=== PATIENT | male | born 1960 | race Caucasian/White ===

== ENCOUNTER → 2017-08-06 06:35 | Outpatient (CLI) | payer BC, SELFPAY ==
--- NOTE | 2017-08-06 | XR_ITS ---
XR knee RT 3V HISTORY: ITS.REASON: PAINFUL R KNEE ORDERING PHYSICIAN: Rm Livingston MD PATIENT AGE: 56 years FINDINGS: No fracture or dislocation. No lytic or blastic change. Normal mineralization. There are mild osteoarthritic changes of the medial compartment and patellofemoral joint. IMPRESSION: Mild osteoarthritis of the right knee
== END ==
PROVIDERS: PCP Family Medicine; Visit Provider Family Medicine
DX: M25.561 Pain in right knee (principal)
CPT/HCPCS: 73562

== ENCOUNTER → 2017-09-29 07:56 | Outpatient (CLI) | payer BC, SELFPAY ==
[2017-09-29 10:58] LABS: Chol/HDL Ratio 3.5 (1-3.5); Cholesterol 170 mg/dL (140-200); HDL Cholesterol 48 mg/dL (27-67); LDL Cholesterol 103 mg/dL (0-130); Triglycerides 93 mg/dL (30-200); VLDL Cholesterol 19 mg/dL (0-40)
== END ==
PROVIDERS: Visit Provider Internal Medicine Cardiovascular Disease
DX: E78.5 Hyperlipidemia, unspecified (principal)
CPT/HCPCS: 36415; 80061

== ENCOUNTER 2017-10-18 08:00 | Outpatient (RCR) | payer BC, SELFPAY | END 2017-10-18 08:01 | disposition home or self-care (01) | LOC: PT 08:00 | PROVIDERS: Family Provider Family Medicine; PCP Family Medicine; Visit Provider Physician Assistant | DX: M25.561 Pain in right knee (principal) | CPT/HCPCS: 97033; 97035; 97110; 97140; 97163 ==

== ENCOUNTER → 2018-03-25 15:25 | Outpatient (CLI) | payer BC, SELFPAY ==
--- NOTE | 2018-03-25 15:30 | MR_ITS ---
MR knee RT wo con HISTORY: Knee pain and swelling with instability ITS.REASON: PAIN IN RT KNEE ORDERING PHYSICIAN: Joon Loera MD PATIENT AGE: 57 years Comparison: 08/06/2017 TECHNIQUE: Standard multiplanar multiecho sequences are performed without contrast. FINDINGS: The cruciate ligaments, collateral ligaments, patellar tendon, and quadriceps tendon are intact. There are tricompartmental osteoarthritic changes with a knee joint effusion. The lateral meniscus has an unremarkable appearance. There is increased T2 signal of the posterior horn of the medial meniscus. This however does not communicate with the articular surface and does not meet the strict MRI criteria for meniscal tear. There is some increased T2 signal involving the medial femoral condyle as well as the medial tibial plateau. Osteochondritis decicans involves the medial femoral condyle and medial tibial plateau. There is a 7 mm area of decreased T1 signal involving the subchondral portion of the medial femoral condyle and a 4 mm area of similar signal characteristics of the medial tibial plateau. Tricompartmental osteoarthritis noted somewhat worse at the patellofemoral joint. Subarticular cystic changes are present involving the proximal tibia centrally just lateral to the tibial spine region. There is mild thinning of the patellar cartilage with some increased T2 signal involving the subchondral portion of the patella. IMPRESSION: 1. No evidence of meniscal tear or cruciate ligament tear. 2. Tricompartmental osteoarthritis with knee joint effusion. 3. Osteochondritis desiccation is of the medial femoral condyle and medial tibial plateau
== END ==
PROVIDERS: PCP Family Medicine; Visit Provider Family Medicine
DX: M25.561 Pain in right knee (principal)
CPT/HCPCS: 73721

== ENCOUNTER → 2018-04-22 10:18 | Outpatient (CLI) | payer BC, SELFPAY ==
--- NOTE | 2018-04-22 10:22 | XR_ITS ---
XR knee RT 4V Ordering Physician: Bibiana Palomo MD Patient Age: 57 years: Male HISTORY: ITS.REASON: Rt knee pain pain at medial aspect of knee. Some swelling TECHNIQUE:.: Weightbearing AP, lateral and Hirsch views were performed as well as oblique. COMPARISON :418 right knee radiograph & MRI of right knee March 2018 FINDINGS Mild Narrowing of the medial compartment reflecting developing degenerative changes here. These were seen previously . Minor sclerosis at, about medial compartment. Mild sharpening the joint margins. As well as early hypertrophy about the notch. No significant joint effusion. Bones well mineralized. Patella normal position and relationships on sunrise view. IMPRESSION: . Developing degenerative changes right knee- most evident at medial compartment .
== END ==
PROVIDERS: PCP Family Medicine; Visit Provider Orthopaedic Surgery
DX: M25.561 Pain in right knee (principal)
CPT/HCPCS: 73564

== ENCOUNTER → 2018-09-03 07:14 | Outpatient (CLI) | payer BC, SELFPAY ==
[2018-09-03 08:46] LABS: Alanine Aminotransferase 47 U/L (12-78); Albumin/Globulin Ratio 1.4 (1.1-1.8); Alkaline Phosphatase 110 U/L (46-116); Aspartate Amino Transferase 32 U/L (15-37); Bilirubin,Total 0.6 mg/dL (0.2-1.0); Blood Urea Nitrogen 14 mg/dL (7-18); Calcium 9.4 mg/dL (8.5-10.1); Carbon Dioxide 28 mmol/L (21.0-32.0); Chloride 104 mmol/L (98-107); Creatinine,Serum 1.01 mg/dL (0.70-1.30); Estimated Glomerular Filt Rate 76 ml/min (>60); GFR (African American) 92 ML/MIN (>60); Globulin 2.9 gm/dl (1.3-3.2); Glucose 113 mg/dL (74-106); Sodium 140 mmol/L (136-145); Total Protein,Serum 6.9 gm/dL (6.4-8.2)
== END ==
PROVIDERS: Visit Provider Psychiatry & Neurology Neurology
DX: G25.0 Essential tremor (principal)
CPT/HCPCS: 36415; 80053

== ENCOUNTER → 2019-03-28 08:39 | Outpatient (CLI) | payer BC, SELFPAY ==
[2019-03-28 11:21] LABS: Prostate Specific Ag Screen 1.6 ng/mL (0.0-4.0)
[2019-03-28 11:44] LABS: Alanine Aminotransferase 37 U/L (12-78); Albumin Level 3.8 gm/dL (3.4-5.0); Albumin/Globulin Ratio 1.2 (1.1-1.8); Alkaline Phosphatase 131 U/L (46-116); Anion Gap 15.7 mEq/L (5-15); Aspartate Amino Transferase 21 U/L (15-37); Bilirubin,Total 0.4 mg/dL (0.2-1.0); Blood Urea Nitrogen 13 mg/dL (7-18); Calcium 8.8 mg/dL (8.5-10.1); Carbon Dioxide 26 mmol/L (21.0-32.0); Chloride 104 mmol/L (98-107); Chol/HDL Ratio 3.3 (1-3.5); Cholesterol 142 mg/dL (140-200); Creatinine,Serum 0.94 mg/dL (0.70-1.30); Estimated Glomerular Filt Rate 82 ml/min (>60); GFR (African American) 100 ML/MIN (>60); Globulin 3.2 gm/dl (1.3-3.2); Glucose 110 mg/dL (74-106); HDL Cholesterol 43 mg/dL (27-67); LDL Cholesterol 80 mg/dL (0-130); Potassium 4.7 mmoL/L (3.5-5.1); Sodium 141 mmol/L (136-145); Triglycerides 94 mg/dL (30-200); VLDL Cholesterol 19 mg/dL (0-40)
== END ==
PROVIDERS: Urology; Visit Provider Internal Medicine Cardiovascular Disease
DX: G47.33 Obstructive sleep apnea (adult) (pediatric) (principal); R97.20 Elevated prostate specific antigen [PSA]
CPT/HCPCS: 36415; 80053; 80061; G0103

== ENCOUNTER → 2020-06-11 09:53 | Outpatient (CLI) | payer BC, SELFPAY ==
[2020-06-11 10:42] LABS: Basophils # 0.1 K/mm3 (0-0.2); Basophils % 0.8 % (0.1-2.0); Eosinophils # 0.1 K/mm3 (0.0-0.4); Eosinophils % 1.6 % (0.1-12.0); Hemoglobin 14.7 g/dL (14.1-18.0); Lymphocytes # 2.7 K/mm3 (0.7-4.5); Mean Corpuscular HGB Conc 33.4 g/dL (31.8-35.4); Mean Corpuscular Hemoglobin 28.3 pg (27.0-31.2); Mean Corpuscular Volume 84.8 fl (80-94); Mean Platelet Volume 8.2 fl (7.4-10.4); Monocytes # 0.3 K/mm3 (0.1-1.0); Neutrophils # 4.5 K/mm3 (1.8-7.8); Neutrophils % 58.5 % (37.0-80.0); Platelet Count 198 K/mm3 (142-424); Red Blood Count 5.19 M/mm3 (4.60-6.20); Red Cell Distribution Width 14.7 % (11.5-17.5); White Blood Count 7.8 K/mm3 (4.8-10.8)
[2020-06-11 10:56] LABS: Alanine Aminotransferase 38 U/L (12-78); Albumin Level 4.7 g/dl (3.5-5.0); Albumin/Globulin Ratio 1.7 (1.1-1.8); Alkaline Phosphatase 95 U/L (38-126); Anion Gap 13.6 mEq/L (5-15); Aspartate Amino Transferase 48 U/L (17-59); Bilirubin,Total 0.7 mg/dl (0.2-1.3); Blood Urea Nitrogen 15 mg/dl (9-20); Calcium 10.1 mg/dl (8.4-10.2); Carbon Dioxide 28 mmol/L (22.0-30.0); Chloride 104 mmol/L (98-107); Chol/HDL Ratio 3.4 (1-3.5); Cholesterol 178 mg/dl (140-200); Estimated Glomerular Filt Rate 99 ml/min (>60); GFR (African American) 120 ML/MIN (>60); Globulin 2.8 g/dL (1.3-3.2); Glucose 107 mg/dl (74-100); HDL Cholesterol 52 mg/dl (40-60); Potassium 4.6 mmoL/L (3.5-5.1); Sodium 141 mmol/L (136-145); Total Protein,Serum 7.5 g/dl (6.3-8.2); Triglycerides 146 mg/dl (30-150); VLDL Cholesterol 29 mg/dL (0-40)
[2020-06-11 11:07] LABS: Direct LDL Cholesterol 89.69 mg/dL (100-129)
[2020-06-11 11:26] LABS: Prostate Specific Ag, Diagnost 1.88 ng/ml (0.0-4.0)
== END ==
PROVIDERS: Visit Provider Internal Medicine Cardiovascular Disease
DX: Z00.00 Encounter for general adult medical examination without abnormal findings (principal); E78.5 Hyperlipidemia, unspecified; M17.0 Bilateral primary osteoarthritis of knee; G25.0 Essential tremor
CPT/HCPCS: 36415; 80053; 80061; 84153; 85025

== ENCOUNTER → 2021-03-03 07:45 | Outpatient (CLI) | payer BC, SELFPAY ==
[2021-03-03 08:07] LABS: Hematocrit 41.2 % (42.0-52.0); Hemoglobin 14.2 g/dL (14.1-18.0); Mean Corpuscular HGB Conc 34.4 g/dL (31.8-35.4); Mean Corpuscular Hemoglobin 29.5 pg (27.0-31.2); Mean Corpuscular Volume 85.9 fl (80-94); Platelet Count 209 K/mm3 (142-424); Red Cell Distribution Width 14.5 % (11.5-17.5); White Blood Count 8.5 K/mm3 (4.8-10.8)
[2021-03-03 09:11] LABS: Alanine Aminotransferase 44 U/L (12-78); Albumin Level 4.3 g/dl (3.5-5.0); Albumin/Globulin Ratio 1.7 (1.1-1.8); Alkaline Phosphatase 101 U/L (38-126); Anion Gap 9.7 mEq/L (5-15); Aspartate Amino Transferase 44 U/L (17-59); Bilirubin,Total 0.6 mg/dl (0.2-1.3); Blood Urea Nitrogen 13 mg/dl (9-20); Calcium 9.3 mg/dl (8.4-10.2); Carbon Dioxide 30 mmol/L (22.0-30.0); Chloride 104 mmol/L (98-107); Chol/HDL Ratio 3.5 (1-3.5); Cholesterol 161 mg/dl (140-200); Estimated Glomerular Filt Rate 86 ml/min (>60); GFR (African American) 104 ML/MIN (>60); Globulin 2.5 g/dL (1.3-3.2); Glucose 118 mg/dl (74-100); HDL Cholesterol 46 mg/dl (40-60); Potassium 4.7 mmoL/L (3.5-5.1); Sodium 139 mmol/L (136-145); Total Protein,Serum 6.8 g/dl (6.3-8.2); Triglycerides 179 mg/dl (30-150); VLDL Cholesterol 36 mg/dL (0-40)
[2021-03-03 09:22] LABS: Direct LDL Cholesterol 90.99 mg/dL (100-129)
== END ==
PROVIDERS: Visit Provider Internal Medicine Cardiovascular Disease
DX: I34.1 Nonrheumatic mitral (valve) prolapse (principal); E78.5 Hyperlipidemia, unspecified
CPT/HCPCS: 36415; 80053; 80061; 85014; 85018; 85048; 85049

== ENCOUNTER 2021-09-20 15:29 | Emergency (ER) | payer BC, SELFPAY ==
[2021-09-20 15:54] VITALS: BP 131/66; PULSE 87; RESP 17; TEMP 36.7; O2SAT 98; BMI 22.5
[2021-09-20 16:04] VITALS: BP 107/70; PULSE 111; RESP 18; TEMP 36.9; O2SAT 96; BMI 28.5
--- NOTE | 2021-09-20 17:28 | HMH.EDUTC ---
[facility] [place] Clinical Impression: Laceration of right forearm Qualifiers: Encounter type: initial encounter Qualified Code(s): S51.811A - Laceration without foreign body of right forearm, initial encounter Disposition: Home, Self-Care Condition on Discharge: Good Instructions: How to Care for a Laceration After Repair, DI for Laceration Repair -- Simple Additional Instructions: Keep the wound clean and dry. Keep a dressing on it if you are going to be getting it dirty. Watch the for signs of infection, such as redness, swelling, drainage, fever. etc. Take tylenol or ibuprofen for pain. Follow up with your regular doctor. Return in 10 days to have the sutures removed. GO TO THE ER FOR ANY WORSENING SYMPTOMS OR CONCERNS. Prescriptions: cephALEXin [cephALEXin 500mg capsule] 500 mg PO Q6H 10 Days #40 cap Transmission Status: Received by [id number] Referrals: Joon Loera MD [Primary Care Provider] - Time of Disposition: 17:31 Medical Decision Making - Medical Records Medical records reviewed: No: I reviewed the patient's medical records. - Geoffrey Inquiry Pt receiving controlled substance: No Vital Signs: 09/20/21 15:54 09/20/21 16:04 09/20/21 17:32 Temperature 98.1 F 98.5 F 98.5 F Temperature Source Oral Oral Pulse Rate 111 H Pulse Rate [Left Radial] 87 111 H Respiratory Rate 17 18 18 Blood Pressure 107/70 L Blood Pressure [Right Arm] 131/66 107/70 L Blood Pressure Mean [Right Arm] 87 82 02 Sat by Pulse Oximetry 98 96 [facility] [place] - General Stated complaint: AO 09/20@1445Lac to R Arm Time Seen by Provider: 09/20/21 16:00 Description of Symptoms (Recalled from Triage Doc. by RN): patient comes in for laceration on right wrist. happened today HEENT Symptoms (Recalled from RN notes): No Resp Symptoms (Recalled from RN notes): No Skin Symptoms (Recalled from RN notes): Yes MS Symptoms (Recalled from RN notes): No Functional Status (Recalled from RN notes): wnl - History of Present Illness Provider Complaint: He states that he has 2 lacerations on his right wrist. He was using a chain saw to cut a tree up that had fallen in his yard. As he was cutting the chain saw off he accidentily touch his arm to the still moving chain. He denies any difficulty moving his fingers, hand or wrist. His tetanus immunization is up to date. - Related Data Home Medications Medication Instructions Recorded Confirmed Atorvastatin Calcium [Atorvastatin 40 mg PO DAILY 07/21/17 12/11/20 40mg Tab] Metoclopramide HCl [Metoclopramide 10 mg PO DAILY 07/21/17 12/11/20 10mg Tablet] meloxicam 15 mg tablet 15 mg PO PRN #30 tab 11/17/18 12/11/20 kyqnlvmrscrs-qtgtphru-umdrli tablet 1 tab PO DAILY 03/14/19 12/11/20 propranolol 10 mg tablet 10 mg PO BID 03/14/19 12/11/20 zinc 50 mg tablet 50 mg PO DAILY 11/13/19 12/11/20 lansoprazole 30 mg capsule,delayed 30 mg PO DAILY 90 Days #90 cap 12/11/20 12/11/20 release primidone 50 mg tablet 50 mg PO ONCE 30 Days #30 tab 12/11/20 12/11/20 prucalopride 2 mg tablet 2 mg PO DAILY tab 12/11/20 12/11/20 Previous Rx's Medication Instructions Recorded cetirizine 10 mg tablet 10 mg PO DAILY #30 tab 07/09/18 cephALEXin [cephALEXin 500mg 500 mg PO Q6H 10 Days #40 cap 09/20/21 capsule] Allergies Allergy/AdvReac Type Severity Reaction Status Date / Time No Known Allergies Allergy Verified 09/20/21 16:09 - Worker's Comp Is this a Worker's Comp case?: No [facility] History - Hepatitis A Screen Attestation statement:: This patient has been screened for Hepatitis A risk factors. I have reviewed the patient's past medical history: Yes Medical History: Reports:: Gastroesophageal Reflux Disease(GERD), Hyperlipidemia, Lung Disease, Valvular Heart Disease Denies:: Diabetes Mellitus Type 1, Diabetes Mellitus Type 2, Internal Pacemaker, Seizures Other Medical History: Reports: Arthritis, Sinus Problems, Other Comment: DEE, collapse lung
[2021-09-20 17:32] VITALS: BP 107/70; PULSE 111; RESP 18; TEMP 36.9
== END 2021-09-20 17:44 | disposition home or self-care (01) ==
PROVIDERS: Emergency Provider Nurse Practitioner Family; PCP Family Medicine
DX: S51.811A Laceration without foreign body of right forearm, initial encounter (principal); R25.1 Tremor, unspecified; I25.10 Atherosclerotic heart disease of native coronary artery without angina pectoris; K21.9 Gastro-esophageal reflux disease without esophagitis; E78.5 Hyperlipidemia, unspecified; J98.4 Other disorders of lung; G47.33 Obstructive sleep apnea (adult) (pediatric); Z98.1 Arthrodesis status; Z83.438 Family history of other disorder of lipoprotein metabolism and other lipidemia; Z82.49 Family history of ischemic heart disease and other diseases of the circulatory system; W29.3XXA Contact with powered garden and outdoor hand tools and machinery, initial encounter
CPT/HCPCS: 12002; 99213; G0463

== ENCOUNTER 2021-12-07 15:40 | Observation (INO) | payer BC, SELFPAY ==
[2021-12-07] VITALS (11 sets, daily range): BP systolic 113–129; BP diastolic 76–96; PULSE 72–95; RESP 16–21; TEMP 36.6–36.9; O2SAT 96–99; BMI 28.1; BMI 28.0
--- NOTE | 2021-12-07 15:40 | ECG_ITS ---
APPROVED REPORT Exam: Resting ECG HR:88 bpm ECG Measurements Heart Rate 88 AXES UT 155 P 65 QRSd 90 QRS 11 QT 340 T 47 QTc 386 Conclusion SINUS RHYTHM NORMAL ECG UNCONFIRMED REPORT Electronically signed by : Louie Monson MD 12/08/2021 17:18:24
--- NOTE | 2021-12-07 15:59 | XR_ITS ---
PROCEDURE INFORMATION: Exam: XR Chest Exam date and time: 12/07/2021 4:05 PM Age: 61 years old Clinical indication: Other: Chest pain, palpitations TECHNIQUE: Imaging protocol: Radiologic exam of the chest. Views: 2 views. COMPARISON: FERRULER/O MRI-C-SPINE W/O 11/05/2016 8:08 AM FINDINGS: Lungs: Unremarkable. No consolidation. Pleural spaces: Unremarkable. No pleural effusion. No pneumothorax. Heart/Mediastinum: Unremarkable. No cardiomegaly. Bones/joints: Unremarkable. IMPRESSION: No acute findings.
--- NOTE | 2021-12-07 16:01 | PC.NURSE ---
Roxana rounded on patient and family member
[2021-12-07 16:11] LABS: Basophils # 0.1 K/mm3 (0-0.2); Basophils % 0.7 % (0.1-2.0); Eosinophils # 0.1 K/mm3 (0.0-0.4); Eosinophils % 1.4 % (0.1-12.0); Hematocrit 46.8 % (42.0-52.0); Hemoglobin 14.6 g/dL (14.1-18.0); Lymphocytes # 2.9 K/mm3 (0.7-4.5); Lymphocytes % 33.8 % (10-50); Mean Corpuscular HGB Conc 31.3 g/dL (31.8-35.4); Mean Corpuscular Hemoglobin 27.8 pg (27.0-31.2); Mean Corpuscular Volume 88.9 fl (80-94); Mean Platelet Volume 9.5 fl (7.4-10.4); Monocytes # 0.5 K/mm3 (0.1-1.0); Monocytes % 5.4 % (1.7-9.3); Neutrophils % 58.6 % (37.0-80.0); Platelet Count 191 K/mm3 (142-424); Red Blood Count 5.27 M/mm3 (4.60-6.20); Red Cell Distribution Width 14.4 % (11.5-17.5); White Blood Count 8.5 K/mm3 (4.8-10.8)
--- NOTE | 2021-12-07 16:14 | PC.NURSE ---
PT TO XR
[2021-12-07 16:16] LABS: Blood Urea Nitrogen 16 mg/dl (9-20); Calcium 9.5 mg/dl (8.4-10.2); Carbon Dioxide 26 mmol/L (22.0-30.0); Chloride 105 mmol/L (98-107); Creatinine Clearance Estimated 92 mL/min (50-200); Estimated Glomerular Filt Rate 86 ml/min (>60); GFR (African American) 104 ML/MIN (>60); Glucose 96 mg/dl (74-100); Sodium 139 mmol/L (136-145)
--- NOTE | 2021-12-07 16:16 | PC.NURSE ---
PT RETURNED FROM XR
[2021-12-07 16:28] LABS: Troponin I < 0.01 ng/ml (0.00-0.034)
--- NOTE | 2021-12-07 16:45 | PC.NURSE ---
PT ASSISTED TO BR, NO FURTHER NEEDS AT THIS TIME
--- NOTE | 2021-12-07 17:57 | HMH.EDGENADL ---
Discharge Plan Disposition Patient Disposition: Admitted as Observation Condition: Good Clinical Impressions Clinical Impression: Tachycardia, Chest pain, Elevated troponin Discharge ED Provider: Riki Blas General Adult HPI General Chief complaint: Arrhythmia/Palpitations Stated complaint: palpitations Time Seen by Provider: 12/07/21 18:10 Mode of Arrival: Wheelchair Source of Information: Patient and Spouse Limitations: No Limitations Description of Symptoms (Recalled from ER Triage Doc. by RN): PT REPORTS COVID + ON WEDNESDAY, ABOUT 1510 TODAY NOTICED LEFT UPPER CHEST DISCOMFORT, HEART RACING AND DIZZINESS. RESOLVED AT THIS TIME AFTER MULTIPLE VAGAL MANEUVERS PER WHO IS A NURSE. REPORTS EVELVATED HR OVER 200/BPM. REPORTS INCREASED SHORTNESS OF BREATH History of Present Illness HPI narrative: History obtained from patient and . Patient states that he was in the basement today and noticed that he was short of breath and had some discomfort in his chest. He felt his heart and felt that it was racing. His , who is a nurse, put him on a pulse oximeter and his heart rate was up to 240. His pulse ox was good until his heart rate suddenly dropped to the 60s and his pulse ox DROPPED into the 70s briefly and then came back up. Symptoms lasted for about 20 minutes. Since then he has had a couple of momentary twinges of discomfort in the left lateral chest. He has no previous known heart conditions except for mitral valve prolapse. He was diagnosed with COVID on . This is the second time he has had COVID. He has had some nasal congestion, slight headache, mild cough. No fevers. He is a non-smoker. He has hyperlipidemia, diet-controlled diabetes. He does not have hypertension. Patient diagnosed with COVID on Related Data Home Medications Medication Instructions Recorded Confirmed atorvastatin 40 mg tablet 40 mg PO DAILY Cholesterol 07/21/17 12/07/21 zinc 50 mg tablet 50 mg PO DAILY Supplement 11/13/19 12/07/21 primidone 50 mg tablet 50 mg PO ONCE . 30 days #30 tabs 12/11/20 12/07/21 cetirizine 10 mg tablet (Zyrtec) 10 mg PO DAILY Allergy symptoms 12/07/21 12/07/21 tamsulosin 0.4 mg capsule 0.4 mg PO DAILY prostate 12/07/21 12/07/21 Allergies Allergy/AdvReac Type Severity Reaction Status Date / Time No Known Allergies Allergy Verified 09/20/21 16:09 [facility] Social History Smoking Status: Smoker, status unknown alcohol intake: never counseling provided: none substance use type: denies use current occupational status: employed and retired Travel in the last 8 weeks: None household members: spouse housing: house caffeine: Yes ROS Obtained: Yes Systems reviewed as appropriate & no additional complaints except as documented Constitutional Constitutional: Denies fever(s) ENT Ears, Nose, Mouth, and Throat: Reports nasal congestion Cardiovascular Cardiovascular: Reports chest pain, Denies leg edema and Reports rapid heart rate Respiratory Respiratory: Reports shortness of breath and Reports cough Gastrointestinal Gastrointestingal: Denies abdominal pain, diarrhea or vomiting Physical Exam General General appearance: alert and in no apparent distress Head Head exam: atraumatic and normocephalic Eye Eye exam: Present normal appearance and EOMI ENT ENT exam: Present normal exam and mucous membranes moist Neck Neck exam: Present normal inspection and trachea midline Chest Chest inspection: Present normal inspection and symmetric chest wall rise Respiratory Respiratory exam: Present normal lung sounds bilaterally; Absent respiratory distress Cardiovascular Cardiovascular exam: Present regular rate, normal rhythm and normal heart sounds Abdominal Exam Abdominal exam: Present soft; Absent distention or tenderness Extremities Exam Extremities exam: Present normal inspection; Absent edema or calf tenderness Neurological Exam Neurological exam: Present alert an
--- NOTE | 2021-12-07 18:14 | PC.NURSE ---
ED MD AT BEDSIDE FOR EVALUATION
--- NOTE | 2021-12-07 18:14 | PC.NURSE ---
dr guerrero at bedside
[2021-12-07 19:02] LABS: Free Thyroxine Index 2.3 ug/dL (5.93-13.13); T4 (Thyroxine) 8.3 ug/dl (5.53-11.0); Triiodothryronine (T3) Uptake 28 % (23.5-40.5)
--- NOTE | 2021-12-07 19:04 | CT_ITS ---
PROCEDURE INFORMATION: Exam: CTA Chest With Contrast Exam date and time: 12/07/2021 7:21 PM Age: 61 years old Clinical indication: Pain; Chest pressure; Additional info: Covid +, chest pain, episode of tachycardia TECHNIQUE: Imaging protocol: Computed tomographic angiography of the chest with contrast. 3D rendering (Not supervised by radiologist): MIP and/or 3D reconstructed images were created by the technologist. Radiation optimization: All CT scans at this facility use at least one of these dose optimization techniques: automated exposure control; mA and/or kV adjustment per patient size (includes targeted exams where dose is matched to clinical indication); or iterative reconstruction. Contrast material: ISOVUE 370; Contrast volume: 70 ml; Contrast route: INTRAVENOUS (IV); COMPARISON: CR Chest 12/07/2021 4:05 PM FINDINGS: Pulmonary arteries: Normal. No pulmonary emboli. Aorta: Unremarkable. No aortic aneurysm. No aortic dissection. Lungs: Minor bibasilar dependent atelectasis. No acute airspace consolidation or pulmonary nodules. Pleural spaces: Unremarkable. No pneumothorax. No pleural effusion. Heart: Unremarkable. No cardiomegaly. No pericardial effusion. Mediastinal space: Circumferential thickening of the lower esophagus. Lymph nodes: Unremarkable. No enlarged lymph nodes. Bones/joints: Unremarkable. No acute fracture. Soft tissues: Unremarkable. IMPRESSION: 1. Minor bibasilar dependent atelectasis. 2. Nonspecific circumferential thickening of the lower esophagus. Cannot exclude esophagitis or possibly esophageal neoplasm. Consider GI consultation.
[2021-12-07 19:15] LABS: Thyroid Stimulating Hormone 3.87 uIU/mL (0.465-4.68)
[2021-12-07 19:54] LABS: Troponin I 0.06 ng/ml (0.00-0.034)
--- NOTE | 2021-12-07 19:59 | PC.NURSE ---
24 hr. monitor requested none available at this time, face sheet faxed to respiratory, for patient to receive call when one is available
--- NOTE | 2021-12-07 20:13 | PC.NURSE ---
Abbey Loera MD at this time
--- NOTE | 2021-12-07 21:14 | PC.NURSE ---
Report given to JOSE Palafox at this time.
--- NOTE | 2021-12-07 21:45 | PC.NURSE ---
Pt heading to med/surg at this time
--- NOTE | 2021-12-07 21:56 | PC.NURSE ---
PT ARRIVED TO FLOOR VIA W/C @ 0740
[2021-12-07 23:29] LABS: Influenza A, PCR Not Detected (NotDetected); Influenza B, PCR Not Detected (NotDetected)
[2021-12-07 23:50] LABS: Coronavirus 19, PCR Detected (NotDetected)
[2021-12-08] VITALS: BP 112/58; PULSE 67; PULSE 80; RESP 20; TEMP 37; O2SAT 97
[2021-12-08 04:00] VITALS: BP 105/60; PULSE 47; PULSE 60; RESP 20; TEMP 37; O2SAT 97
--- NOTE | 2021-12-08 04:03 | PC.NURSE ---
Pt is alert and oriented x 4. Pt denies chest pain, palpitations, and/or SOA. Pt is NSR on telemetry. Maintaining airborne/contact precautions for covid. Lungs CTA. Pt ambulates in room independently. No needs or complaints voiced to staff. Call light in reach.
[2021-12-08 04:42] VITALS: BMI 28.0
[2021-12-08 08:00] VITALS: BP 114/65; PULSE 76; PULSE 83; RESP 16; TEMP 36.4; O2SAT 98
--- NOTE | 2021-12-08 09:12 | P.CONPHA_ITS ---
[facility] Pharmacy VTE Monitoring Patient Demographics Admission date: 12/07/21 Report Date: 12/08/21 Time: 09:12 Patient Allergies No Known Allergies Allergy (Verified 09/20/21 16:09) Height: 1.73 m Weight: 83.928 kg Current Active Problems (Updated 12/07/21 @ 23:00 by Vivienne Molina RN) Tachycardia (Acute) Chest pain (Acute) Elevated troponin (Acute) VTE Risk Labs: VTE Related Lab Results Hgb 14.6 g/dL (14.1-18.0) 12/07/21 15:45 Hct 46.8 % (42.0-52.0) 12/07/21 15:45 Plt Count 191 K/mm3 (142-424) 12/07/21 15:45 BUN 16 mg/dl (9-20) 12/07/21 15:45 Creatinine 0.90 mg/dl (0.66-1.25) 12/07/21 15:45 Estimated Creat Clear 92 mL/min (50-200) 12/07/21 15:45 Was VTE Risk Assessment Performed: Yes VTE Score: 5 VTE Risk Level: Low Risk Clinical Trial Participant: No Prophylaxis VTE Prophylaxis Ordered?: Yes Types of VTE Prophylaxis: TEDS Knee High Location of Applied Device: Refused
--- NOTE | 2021-12-08 10:03 | EXP.HPDC ---
General Admission date:: 12/07/21 Discharge date: 12/08/21 *Admission Date: 12/07/21 *Chief complaint: Palpitations *History of present illness: Mr. Head is a 61 year old male with a long standing history of mitral valve prolapse, followed by Dr. Draper at [facility], who presented to [facility] ER yesterday afternoon complaining of palpitations associated with shortness of breath and some chest pressure. He states he had several of these episodes yesterday, most were fairly brief but he did measure his heart rate at 240 beats per minute during one of the episodes. He did have some chest pressure with these episodes. He has never had any similar episodes in the past. He was incidentally diagnosed with Covid-19 4 days ago. He states his only symptom has been nasal congestion. [facility] Medical History Allergic rhinitis Cervical vertebral fusion Essential tremor Hyperlipidemia MVP (mitral valve prolapse) Surgical History H/O repair of rotator cuff H/O vasectomy History of testicular surgery Hx of cholecystectomy Hx of hernia repair Family History Family history of diabetes mellitus type II Family history of myocardial infarction Social History Smoking Status: Never smoker alcohol intake: never counseling provided: none substance use type: denies use current occupational status: employed Travel in the last 8 weeks: None household members: spouse housing: house marital status: caffeine: Yes Review of Systems Constitutional Constitutional: Denies chills and Denies fever(s) Eyes Eyes: Denies blurry vision ENT Ears, Nose, Mouth, and Throat: Denies abnormal hearing and Denies dizziness *Cardiovascular Cardiovascular: Reports as per HPI *Respiratory Respiratory: Denies cough *Gastrointestinal Gastrointestinal: Denies abdominal pain *Genitourinary Genitourinary: Denies hematuria *Musculoskeletal Musculoskeletal: Denies arthralgias Integumentary/Breasts Skin/Breast: Denies rash *Neurologic Neurologic: Denies abnormal hearing and Denies dizziness Psychiatric Psychiatric: Denies depression Exam Data for Last 24 hours Vital signs and Labs for Last 24 Hours: Temp Pulse Resp BP Pulse Ox 97.6 F 76 16 114/65 98 12/08/21 08:00 12/08/21 08:00 12/08/21 08:00 12/08/21 08:00 12/08/21 08:00 Laboratory Results - last 24 hr 12/07/21 15:45: WBC 8.5, RBC 5.27, Hgb 14.6, Hct 46.8, MCV 88.9, MCH 27.8, MCHC 31.3 L, RDW 14.4, Plt Count 191, MPV 9.5, Neut % (Auto) 58.6, Lymph % (Auto) 33.8, [facility] % (Auto) 5.4, Eos % (Auto) 1.4, Baso % (Auto) 0.7, Neut # (Auto) 5.0, Lymph # (Auto) 2.9, [facility] # (Auto) 0.5, Eos # (Auto) 0.1, Baso # (Auto) 0.1 12/07/21 15:45: Sodium 139, Potassium 4.0, Chloride 105, Carbon Dioxide 26, Anion Gap 12.0, BUN 16, Creatinine 0.90, Estimated Creat Clear 92, Estimated GFR 86, Est GFR ( Amer) 104, Glucose 96, Calcium 9.5, Troponin I < 0.01 12/07/21 15:45: TSH 3.87, Free T4 Index 2.3 L, Thyroxine (T4) 8.3, T3 Uptake 28 12/07/21 15:47: D-Dimer 0.50 12/07/21 19:18: Troponin I 0.06 H 12/07/21 21:51: Troponin I 0.10 H 12/07/21 22:40: SARS-CoV-2 (PCR) Detected A, Influenza A Untype (PCR) Not detected, Influenza Type B (PCR) Not detected I & O for Last 24 hours: Intake & Output 12/05/21 12/06/21 12/07/21 12/08/21 23:59 23:59 23:59 23:59 Intake Total 360 / 360 Output Total 800 / 800 Balance -440 / -440 Weight 185 lb 0.438 oz 185 lb 0.473 oz Constitutional Constitutional: no acute distress *Routine HEENT Exam Head: Present normocephalic Eye: Present EOMI and PERRL ENT: Present mucous membranes moist *Routine Neck Exam Neck: Present supple; Absent lymphadenopathy *Routine Respiratory Exam Respiratory: Present CTA bilaterally *Rout
--- NOTE | 2021-12-08 10:40 | PC.NURSE ---
Notified pt of discharge order in. Pt called and will get to [place] @ 2115
--- NOTE | 2021-12-09 13:31 | CARE MANAGER ---
Contacted patient related to hospital discharge. He was unable to follow up with PCP until next week as he has to be 10 days post COVID. He denies any questions or concerns.
== END 2021-12-08 11:30 | disposition home or self-care (01) ==
LOC: ER 20:17 → 2ND 20:33
PROVIDERS: Admitting Provider Family Medicine; Emergency Provider Emergency Medicine; PCP Family Medicine; Visit Provider Family Medicine
DX: U07.1 COVID-19 (principal); R00.0 Tachycardia, unspecified; E11.9 Type 2 diabetes mellitus without complications; R07.9 Chest pain, unspecified; Z79.899 Other long term (current) drug therapy; I34.1 Nonrheumatic mitral (valve) prolapse; G25.0 Essential tremor
CPT/HCPCS: 36415; 71046; 71275; 80048; 84436; 84443; 84479; 84484; 85025; 85378; 93005; 99285; C9803; G0378; Q9967; U0003; U0005